=== PATIENT | male | born 1990 | race Caucasian/White ===

== ENCOUNTER 2020-01-31 20:10 | Emergency (ER) | payer OTHER ==
[~2020-01-31] VITALS: Ht 177.8 cm; Wt 69.5 kg
[2020-01-31] MEDS ORDERED: NS 1,000 ML IV ONE (21:00)
[2020-01-31] MEDS ORDERED: KETOROLAC 30 MG/ML 1ML VIAL IV ONE (21:00)
[2020-01-31] MEDS ORDERED: GI COCKTAIL 50ML BTL(HYOSCYAMINE/MAALOX/LIDOCAINE VISCOUS)(1:3:1) PO ONE (21:00)
[2020-01-31 21:35] LABS: HEMOGLOBIN 14.4 g/dl (13.5-17.5); MEAN CORPUSCULAR HEMOGLOBIN 31.6 pg (27.0-33.0); MEAN CORPUSCULAR HGB CONC 33.5 g/dl (32.0-36.5); MEAN CORPUSCULAR VOLUME 94.5 fl (80.0-96.0); PLATELET COUNT, AUTOMATED 217 10^3/uL (150-450); RED BLOOD COUNT 4.55 10^6/uL (4.30-6.10); WHITE BLOOD COUNT 9.7 10^3/uL (4.0-10.0)
[2020-01-31 21:50] LABS: MONO REFLEX EBV COMP POSITIVE (NEGATIVE)
[2020-01-31] MEDS ORDERED: ISOVUE-370 76% 100ML VIAL As Ordered ONE (21:51)
[2020-01-31 21:52] LABS: ATYPICAL LYMPH 16 % (0-5); LYMPHOCYTES 24 % (16-44); MONOCYTES 7 % (0-5); NEUTROPHILS 52 % (28-66); PLATELET ESTIMATE NORMAL (NORMAL)
[2020-01-31 21:54] LABS: ERYTHROCYTE SEDIMENTATION RATE 6 mm/hr (0-15)
[2020-01-31 21:57] LABS: C REACTIVE PROTEIN QUANTITATIV 5.86 MG/DL (0.00-0.30)
--- NOTE | 2020-01-31 22:15 | REPVR ---
PROCEDURE INFORMATION: Exam: CT Neck With Contrast Exam date and time: 01/31/2020 10:03 PM Age: 29 years old Clinical indication: Painful swallowing; Additional info: Dysphagia, fever, muffled voice, lad TECHNIQUE: Imaging protocol: Computed tomography images of the neck with intravenous contrast. Radiation optimization: All CT scans at this facility use at least one of these dose optimization techniques: automated exposure control; mA and/or kV adjustment per patient size (includes targeted exams where dose is matched to clinical indication); or iterative reconstruction. Contrast material: ISO 370; Contrast volume: 75 ml; Contrast route: IV; COMPARISON: No relevant prior studies available. FINDINGS: Nasopharynx: The adenoids are enlarged and edematous without a definite abscess. Oropharynx: The tonsils are enlarged and edematous without a drainable abscess. Hypopharynx: Unremarkable. Larynx: Unremarkable. Normal epiglottis. Retropharyngeal space: Unremarkable. Submandibular/Parotid glands: Normal. Glands are normal in size. Thyroid: Normal. No enlarged or calcified nodules. Lymph nodes: Multiple enlarged lymph nodes are noted throughout the neck. Trachea: Visualized trachea is unremarkable. Lungs: Unremarkable as visualized. Bones/joints: Unremarkable. No acute fracture. Soft tissues: Unremarkable. No significant soft tissue swelling. IMPRESSION: 1. Acute pharyngitis with enlargement and edema of the tonsils and adenoids. No drainable abscess is seen. 2. Reactive cervical lymphadenopathy. Electronically signed by: Carlos Orellana On 01/31/2020 22:15:39 PM
[2020-01-31] MEDS ORDERED: IBUP-1022 PO (23:00)
[2020-01-31] MEDS ORDERED: MAGICMW SSP (23:00)
[2020-01-31 23:06] VITALS: BP 142/65
[2020-02-01] MEDS ORDERED: MAGICMW SSP (02:46)
[2020-02-01] MEDS ORDERED: IBUP-1022 PO (02:46)
== END 2020-01-31 23:13 | disposition home or self-care (01) ==
LOC: M ED 20:10
DX: B27.90 Infectious mononucleosis, unspecified without complication (principal); R07.0 Pain in throat; R09.81 Nasal congestion
CPT/HCPCS: 70491; 80047; 85025; 85652; 86140; 86308; 87040; 87880; 96361; 96374; 99284; J1885; Q9967